=== PATIENT | female | born 1990 | race Caucasian/White ===

== ENCOUNTER 2017-09-14 05:56 | Emergency (ER) | payer BC, MEDICAID, SELFPAY ==
[2017-09-14 05:56] VITALS: BP 133/76; PULSE 130; RESP 20; TEMP 37.1; O2SAT 98; BMI 33.2
[2017-09-14] MEDS: Ondansetron 4 MG/2 ML Vial IV (06:13)
[2017-09-14] MEDS: 0.9% Normal Saline 1,000 ML 1000 ML IV ×2 (06:14→06:55)
[2017-09-14] MEDS: Loperamide 2 MG Capsule 4 MG PO (06:15)
[2017-09-14 06:19] LABS: Absolute Lymphocyte Count 0.66 X10^3/ul (0.83-4.51); Basophil# 0.01 X10^3/uL; Basophil% 0.1 % (0-1); Eosinophil# 0.03 X10^3/uL; Eosinophils% 0.2 % (0-5); Hematocrit 38.4 % (37-47); Hemoglobin 12.5 g/dl (12.0-15.0); Lymphocyte # 0.66 X10^3/ul (4.0); Mean Corp Hgb Conc 32.6 g/gl (32-36); Mean Corpuscular Hgb 30.4 pg (27.0-32.0); Mean Corpuscular Volume 93.4 fL (81-99); Mean Platelet Vol. 12.5 fl (6.2-12.0); Monocyte# 0.83 X10^3/uL; Neutrophil # 14.98 X10^3/uL (2.7-7.7); Neutrophil % 90.5 % (47-70); Platelet Count 174 K/mm3 (150-450); RBC Distribution Width CV 14.7 % (11.6-14.6); RBC Distribution Width SD 48.8 fl (35.1-43.9); Red Blood Count 4.11 M/mm3 (4.2-5.4); White Blood Count 16.5 K/mm3 (4.4-11.0)
[2017-09-14 06:31] LABS: Anion Gap 14 (5-15); BUN 18 mg/dL (7-18); BUN/Creat Ratio 27.8 RATIO (10-20); Calcium,Total 7.8 mg/dL (8.5-10.1); Chloride 108 mmol/L (98-107); Creatinine, Serum 0.65 mg/dL (0.55-1.02); EST Glomerular Filtration Rate 117 mL/min (>60); Est Glom Filt Rate - Afr Amer 142 mL/min (>60); Estimated Creatinine Clearance 154.46 ml/min; Glucose 132 mg/dL (74-106); Potassium 3.7 mmol/L (3.5-5.1); Sodium Level 140 mmol/L (136-145)
[2017-09-14 06:35] LABS: POSITIVE COUNT NO; POSITIVE DIFFERENTIAL NO; POSITIVE MORPHOLOGY NO
--- NOTE | 2017-09-14 06:53 | ED.DCSUM_ITS ---
- ER Visit Summary Date of Service: 09/14/17 Chief Complaint: [Nausea, vomiting, diarrhea] History of Present Illness: The patient is a 27 F [presents to the emergency department with symptoms that started around 2 AM. Patient states that she had 2-3 watery stools and is vomited more than 10 times. Patient states that she cannot keep anything down. Patient is and proximal Ledy 27 weeks . Patient does describe some abdominal cramping. She denies any vaginal bleeding. Patient is still feeling the baby move. Patient has not had a fever. Patient states that her son was ill about 2-3 weeks ago with upper respiratory symptoms as well as vomiting and diarrhea. Patient denies any urinary symptoms.] Physical Examination: [HEENT-PERRLA, EOMI. Cranial nerves II through XII grossly intact. TMs clear. Mucous membranes dry. No adenopathy. Cardiovascular-regular rate and tachycardic. No murmurs auscultated. Lungs-clear to auscultation, chest wall stable without crepitus or subcu emphysema Abdomen-normoactive bowel sounds, soft, nontender, no rebound or rigidity, no peritoneal signs. Patient has a gravid uterus. Extremities-intact ?4, normal range of motion, normal pulses, atraumatic] Test Results: [CBC with differential obtained showed a white blood cell count of 16.5, hemoglobin 12.5, hematocrit 38, platelets 174. Chemistry showed a sodium of 140, potassium 3.7, chloride 108, CO2 18, glucose 132, BUN 18, creatinine 0.65.] heart tones were 148 Emergency Department Course and Treatment: [Patient was given 2 L normal saline fluid boluses. He should receive Zofran 4 mg IV. Patient received Imodium. Patient was able to tolerate p.o. challenge] Treatment Plan: [Patient will be given a prescription for Zofran and advised use Imodium as needed for diarrhea] Disposition: [Discharged to home in stable condition]. Patient advised to return if persistent vomiting, diarrhea, dehydration, or condition should worsen in any way. Impression: [Viral gastroenteritis Dehydration] This note was generated with [employer] dictation software. It may contain incorrect words, spelling, and punctuation that were not noted in review of the chart prior to signing ED Disposition - Plan for ED Patient: Chief Complaint: Nausea/Vomiting/Diarrhea Referrals: Massimo Velez [Primary Care Provider] -
--- NOTE | 2017-09-14 06:53 | ED.DEP ---
ED Disposition - Plan for ED Patient: Chief Complaint: Nausea/Vomiting/Diarrhea Instructions: ED Gastroenteritis Viral Prescriptions: Ondansetron [Zofran Odt] 4 mg PO Q8H PRN PRN #10 tab PRN Reason: Nausea Referrals: Massimo Velez [Primary Care Provider] - 3-5 Days Additional Instructions: you may use Imodium for diarrhea as needed
[2017-09-14] MEDS: Ondansetron ODT 4 MG Tablet PO (07:05)
[2017-09-14 09:22] VITALS: BP 126/68; PULSE 128; RESP 17; O2SAT 100
== END 2017-09-14 09:25 | disposition home or self-care (01) ==
PROVIDERS: Emergency Provider Emergency Medicine
DX: O99.612 Diseases of the digestive system complicating pregnancy, second trimester (principal); A08.4 Viral intestinal infection, unspecified; E86.0 Dehydration; Z3A.27 27 weeks gestation of pregnancy
CPT/HCPCS: 80048; 85025; 96361; 96374; 99285; J7030; J2405

== ENCOUNTER 2017-11-27 05:25 | Inpatient (IN) | payer BC, MEDICAID, SELFPAY ==
[2017-11-26 17:11] LABS: Hematocrit 35.9 % (37-47); Hemoglobin 11.7 g/dl (12.0-15.0); Mean Corp Hgb Conc 32.6 g/gl (32-36); Mean Corpuscular Volume 92.1 fL (81-99); Mean Platelet Vol. 13.5 fl (6.2-12.0); Platelet Count 147 K/mm3 (150-450); RBC Distribution Width CV 15.5 % (11.6-14.6); RBC Distribution Width SD 50.5 fl (35.1-43.9); White Blood Count 8.9 K/mm3 (4.4-11.0)
[2017-11-26 17:22] LABS: Scan Indicated on CBC? Y/N NO
[2017-11-27] VITALS (22 sets, daily range): BP systolic 90–116; BP diastolic 49–71; PULSE 99–119; RESP 18–20; TEMP 30.5–37; O2SAT 96–100; BMI 35.9
[2017-11-27] MEDS: Lactated Ringers 1,000 ML 999 ML IV (05:50)
[2017-11-27] MEDS: 0.9% Saline Lock 10 ML Syringe IV ×2 (05:50→19:57)
[2017-11-27 06:21] LABS: Bedside Glucose 100 mg/dL (70-110)
[2017-11-27] MEDS: Lactated Ringers 1,000 ML 150 ML IV (06:40)
[2017-11-27] MEDS: Sodium Citrate/Citric Acid 30 ML UDC PO (07:18)
[2017-11-27] MEDS: Oxytocin 30 units/NS 500 ml 30 UNITS/500 ML IV.SOLN 167 UNITS IV (07:53)
[2017-11-27] MEDS: Ketorolac 30 MG/ML Syringe IV ×3 (08:20→19:56)
--- NOTE | 2017-11-27 08:35 | PCM.OB.CSR ---
Delivery Classification: Scheduled Final RICHI: 12/13/17 Gestational age: 37 Weeks and 5 Days Indications for : Repeat Elective , - - Gestational DM, not well controlled with LGA by ultrasound EFW Description of Procedure: The patient was taken to the operating room. She was prepped and draped in the dorsal supine position with a leftward tilt. A Pfannenstiel skin incision was made approximately 2 cm above the symphysis pubis and carried through to underlying layer fascia with the scalpel. Her previous scar was undermined and removed. The fascia was incised incised in the midline and extended laterally with the Gomez scissors. The fascia was dissected off the rectus muscles with blunt and sharp dissection. The rectus muscles were in the midline and the peritoneum was entered sharply. The peritoneal incision was stretched and the bladder blade was placed. The uterine incision was made in a low transverse fashion with the scalpel and extended superiorly and inferiorly with blunt dissection. [The amniotic membranes were ruptured bluntly and clear amniotic fluid returned]. The infant's head was brought to the incision in the flexed position and delivered without difficulty. A loose nuchal cord was easily reduced. The remainder of the infant was delivered with gentle traction and fundal pressure in the standard fashion. The mouth and nares were bulb suctioned. The cord was clamped and cut as the infant was stimulated. [Cord clamping was delayed]. The was handed off to the waiting nursing staff. The placenta was delivered with fundal massage and gentle traction in the standard fashion. The uterus was exteriorized and cleared of all clots and debris. [The cervix was dilated with a ring forcep]. The uterine incision was closed with #1 Vicryl in a running locked fashion. A second layer of the same suture was used in an imbricating fashion and the incision was examined for hemostasis. The uterus was placed back into the peritoneal cavity and hemostasis was assured. Surgical teams outer gloves were changed. The rectus muscles were examined and any bleeding was Bovie cauterized. The parietal peritoneum and rectus muscles were closed en bloc with a #1 Vicryl suture. The rectus fascia was examined and the bleeding was Bovie cauterized and the rectus fascia was closed with 1 PDS suture in a running standard fashion. The subcutaneous tissue was examining and any bleeding was Bovie cauterized. [The subcutaneous tissue was reapproximated with 3-0 Vicryl suture.] The skin was closed in a subcuticular fashion. I performed the entire procedure with assistance. All sponge, lap, and needle counts were correct. The patient was taken to her room for recovery in a stable condition. Amniotic Membrane Rupture Type: Artificial Amniotic Fluid Description: Clear Placenta Disposition: [facility] Specimen(s) sent to pathology: none Drain: Sun to straight drain Fluids Replaced: 800cc Cord Entanglement: Around neck x 1, loose Nuchal Cord Compression: Without compression Cord Vessel Description: 3 Vessels Esitmated Blood Loss (ml): 800 Gender: Male (1 minute): 8 (5 minute): 9 Delayed cord clamping: Yes Pre-op Antibiotic Given: Ancef 2 grams IV x1 - and zithromax Complications: None - Admit VTE Documentation VTE Present on Admission: No VTE Mechan Device Prophylaxis: SCD's VTE Pharm Prophylaxis ordered?: Yes
--- NOTE | 2017-11-27 08:39 | OP.PCM_ITS ---
Delivery Classification: Scheduled Final RICHI: 12/13/17 Gestational age: 37 Weeks and 5 Days Indications for : Repeat Elective , - - Gestational DM, not well controlled with LGA by ultrasound EFW Description of Procedure: The patient was taken to the operating room. She was prepped and draped in the dorsal supine position with a leftward tilt. A Pfannenstiel skin incision was made approximately 2 cm above the symphysis pubis and carried through to underlying layer fascia with the scalpel. Her previous scar was undermined and removed. The fascia was incised incised in the midline and extended laterally with the Gomez scissors. The fascia was dissected off the rectus muscles with blunt and sharp dissection. The rectus muscles were in the midline and the peritoneum was entered sharply. The peritoneal incision was stretched and the bladder blade was placed. The uterine incision was made in a low transverse fashion with the scalpel and extended superiorly and inferiorly with blunt dissection. [The amniotic membranes were ruptured bluntly and clear amniotic fluid returned]. The infant' s head was brought to the incision in the flexed position and delivered without difficulty. A loose nuchal cord was easily reduced. The remainder of the infant was delivered with gentle traction and fundal pressure in the standard fashion. The mouth and nares were bulb suctioned. The cord was clamped and cut as the was stimulated. [Cord clamping was delayed]. The was handed off to the waiting nursing staff. The placenta was delivered with fundal massage and gentle traction in the standard fashion. The uterus was exteriorized and cleared of all clots and debris. [The cervix was dilated with a ring forcep]. The uterine incision was closed with #1 Vicryl in a running locked fashion. A second layer of the same suture was used in an imbricating fashion and the incision was examined for hemostasis. The uterus was placed back into the peritoneal cavity and hemostasis was assured. Surgical teams outer gloves were changed. The rectus muscles were examined and any bleeding was Bovie cauterized. The parietal peritoneum and rectus muscles were closed en bloc with a #1 Vicryl suture. The rectus fascia was examined and the bleeding was Bovie cauterized and the rectus fascia was closed with 1 PDS suture in a running standard fashion. The subcutaneous tissue was examining and any bleeding was Bovie cauterized. [The subcutaneous tissue was reapproximated with 3-0 Vicryl suture.] The skin was closed in a subcuticular fashion. I performed the entire procedure with assistance. All sponge, lap, and needle counts were correct. The patient was taken to her room for recovery in a stable condition. Amniotic Membrane Rupture Type: Artificial Amniotic Fluid Description: Clear Placenta Disposition: [facility] Specimen(s) sent to pathology: none Drain: Sun to straight drain Fluids Replaced: 800cc Cord Entanglement: Around neck x 1, loose Nuchal Cord Compression: Without compression Cord Vessel Description: 3 Vessels Esitmated Blood Loss (ml): 800 Infant Gender: Male (1 minute): 8 (5 minute): 9 Delayed cord clamping: Yes Pre-op Antibiotic Given: Ancef 2 grams IV x1 - and zithromax Complications: None - Admit VTE Documentation VTE Present on Admission: No VTE Mechan Device Prophylaxis: SCD's VTE Pharm Prophylaxis ordered?: Yes
[2017-11-27 09:26] LABS: Bedside Glucose 154 mg/dL (70-110)
[2017-11-27] MEDS: Lactated Ringers 1,000 ML 100 ML IV ×2 (09:30→10:37)
[2017-11-27 11:56] LABS: Bedside Glucose 79 mg/dL (70-110)
--- NOTE | 2017-11-27 16:09 | NURSING ---
0915 - [facility] [phone] [phone] [id number]
[2017-11-27] MEDS: Senna/Docusate Sodium 1 Tablet PO (21:57)
[2017-11-28] VITALS (7 sets, daily range): BP systolic 87–110; BP diastolic 49–65; PULSE 107–122; RESP 16–20; TEMP 36–36.8; O2SAT 96–98
[2017-11-28] MEDS: 0.9% Saline Lock 10 ML Syringe IV ×3 (02:37→15:10)
[2017-11-28] MEDS: Ketorolac 30 MG/ML Syringe IV ×4 (02:37→20:56)
[2017-11-28] MEDS: Hydrocortisone 2.5% Crm 1 APPLIC TOPICAL (04:54)
[2017-11-28] MEDS: Enoxaparin 40 MG/0.4 ML Syringe SC (05:29)
[2017-11-28 05:35] LABS: Bedside Glucose 112 mg/dL (70-110)
[2017-11-28 06:16] LABS: Hematocrit 29.6 % (37-47); Hemoglobin 9.6 g/dl (12.0-15.0); Mean Corp Hgb Conc 32.4 g/gl (32-36); Mean Corpuscular Hgb 30.7 pg (27.0-32.0); Mean Corpuscular Volume 94.6 fL (81-99); Mean Platelet Vol. 12.9 fl (6.2-12.0); Platelet Count 109 K/mm3 (150-450); RBC Distribution Width CV 15.8 % (11.6-14.6); RBC Distribution Width SD 52.4 fl (35.1-43.9); Red Blood Count 3.13 M/mm3 (4.2-5.4); White Blood Count 10.7 K/mm3 (4.4-11.0)
[2017-11-28 06:56] LABS: Scan Indicated on CBC? Y/N NO
--- NOTE | 2017-11-28 08:30 | PCM.PN.OB ---
Subjective: pain well controlled, average lochia, no CP/SOB. Doesn't feel lightheaded or dizzy when up. No N/V. - Physical Exam General: Alert, Cooperative, No apparent distress Abdomen: Soft, Distended - mildly, softly, Tender - appropriately, fundus firm, below umbilicus Extremities: Edema - 1+ Skin: Incision - clean, dry and intact Vital Signs Temp Pulse Resp BP Pulse Ox 96.8 F L 115 H 20 H 92/53 L 96 11/28/17 03:30 11/28/17 05:00 11/28/17 05:00 11/28/17 05:00 11/28/17 05:00 Oxygen Delivery Method Room Air Weight: 80.6 kg Body Mass Index (BMI) 35.9 Intake and Output for Last 24 Hours 11/26/17 11/27/17 11/28/17 23:59 23:59 23:59 Intake Total 2750 / 2750 1000 / 1000 Output Total 1100 / 1100 1150 / 1150 Balance 1650 / 1650 -150 / -150 Laboratory Tests Past 24 Hrs 11/28/17 05:40 WBC 10.7 RBC 3.13 L Hgb 9.6 L Hct 29.6 L MCV 94.6 MCH 30.7 MCHC 32.4 RDW 15.8 H RDW Differential 52.4 H Plt Count 109 L MPV 12.9 H POC Glucose 11/28/17 11/27/17 11/27/17 05:32 11:40 09:20 POC Glucose 112 H 79 154 H Medical Necessity - Tobacco Use Smoking Status: Never smoker Assessment/Plan POD#1 doing well acute blood loss anemia, will recheck at noon due to persistent tachycardia and doing well
[2017-11-28] MEDS: Senna/Docusate Sodium 1 Tablet PO (08:35)
--- NOTE | 2017-11-28 12:11 | NURSING ---
green catheter discontinued
[2017-11-28] MEDS: Acetaminophen 500 MG Tablet 1000 MG PO (12:35)
[2017-11-28 12:47] LABS: Hematocrit 30.3 % (37-47); Hemoglobin 9.7 g/dl (12.0-15.0); Mean Corpuscular Hgb 29.8 pg (27.0-32.0); Mean Corpuscular Volume 93.2 fL (81-99); Mean Platelet Vol. 12.2 fl (6.2-12.0); Platelet Count 115 K/mm3 (150-450); RBC Distribution Width SD 54.7 fl (35.1-43.9); Red Blood Count 3.25 M/mm3 (4.2-5.4); White Blood Count 10.1 K/mm3 (4.4-11.0)
[2017-11-28 12:50] LABS: Scan Indicated on CBC? Y/N NO
--- NOTE | 2017-11-29 00:44 | NURSING ---
After showering pt reported that the edge of her mepilex dressing was coming off and water had gotten underneath. Upon assessment the edge of dressing was peeled away from skin so this nurse removed the entire dressing-incision was well approximated , without redness or drainage. A telfa was then placed over incision to protect from clothing friction.
[2017-11-29] MEDS: Docusate Sodium 100 MG Capsule PO ×2 (02:46→10:09)
[2017-11-29] MEDS: Ketorolac 30 MG/ML Syringe IV (02:46)
[2017-11-29] MEDS: 0.9% Saline Lock 10 ML Syringe IV (02:46)
[2017-11-29 03:00] VITALS: BP 104/66; PULSE 107; RESP 16; TEMP 36.7
[2017-11-29] MEDS: Acetaminophen 500 MG Tablet 1000 MG PO (06:06)
--- NOTE | 2017-11-29 08:22 | PCM.PN.OB ---
Subjective: pain controlled, declines narcotics. Ambulating. Average lochia. +BM - Physical Exam General: Alert, Cooperative, No apparent distress Abdomen: Soft, Non-Distended, Tender - appropriately Skin: Incision - clean, dry and intact Vital Signs Temp Pulse Resp BP Pulse Ox 98.1 F 107 H 16 104/66 98 11/29/17 03:00 11/29/17 03:00 11/29/17 03:00 11/29/17 03:00 11/28/17 20:00 Oxygen Delivery Method Room Air Weight: 80.6 kg Body Mass Index (BMI) 35.9 Intake and Output for Last 24 Hours 11/27/17 11/28/17 11/29/17 23:59 23:59 23:59 Intake Total 2750 / 2750 1000 / 1000 Output Total 1100 / 1100 1950 / 1950 Balance 1650 / 1650 -950 / -950 Laboratory Tests Past 24 Hrs 11/28/17 12:25 WBC 10.1 RBC 3.25 L Hgb 9.7 L Hct 30.3 L MCV 93.2 MCH 29.8 MCHC 32.0 RDW 16.0 H RDW Differential 54.7 H Plt Count 115 L MPV 12.2 H Medical Necessity - Tobacco Use Smoking Status: Never smoker Assessment/Plan POD#2 doing well acute blood loss anemia, appropriate for EBL w/ surger and doing well desires d/c
--- NOTE | 2017-11-29 08:26 | DCINST_ITS ---
Discharge Diet: No Restrictions Discharge Activity: Return to Normal Activity, May Not Drive - for 2 weeks, May not drive while taking narcotic pain medications., May Shower, May Take a Tub Bath - in 7 days. May resume sexual activity in: 4-6 weeks Lifting Restrictions: 20 pounds Additional Activity Instructions:: Nothing in the vagina for 4-6 weeks. You may return to work/school in 6 weeks. Call your doctor if your incision/area has: Continuous Slow Oozing, Sudden Increased Bleeding, Increased Pain/ Swelling, Increased Redness, Foul Smelling Discharge Call your doctor if you observe: Fever of 101 or Higher, Using more than one pad per hour - for 2 hours Suture Line Care: Avoid Pulling/Pushing, Avoid Pinching/Bending Cleanse incision/area with: Keep Dressing Clean & Dry Additional Instructions: If you experience any of the following, contact your healthcare provider. * Bleeding that soaks a pad every hour for 2 hours * Fever 100.4 or higher * Unrelieved incision or abdominal pain * Swelling, redness, discharge or bleeding from your incision or episiotomy site * Your incision begins to separate * Problems urinating (including inability to urinate or burning while urinating) . * Visual changes * Severe headache * Flu-like symptoms * Pain or redness in one of both of your breasts * Pain, warmth, tenderness or swelling in your legs, especially the calf area * Frequent nausea and vomiting * Symptoms of depression or anxiety If you experience any of the following, call 911 or go to the nearest Emergency Room. * Chest pain * Problems breathing * Seizure activity * Partial or complete paralysis of a body part, slurred speech, weakness or drooping of the face, or a sudden inability to walk or hold your balance Allergies/Adverse Reactions: Allergies No Known Allergies Allergy (Verified 11/26/17 16:13) Medications to take at Discharge Vits [Prenatabs FA ] 1 tablet PO DAILY 12/22/16 Naproxen [Naprosyn] 500 mg PO TID PRN #40 tab 11/29/17 The following prescriptions were given: Naproxen [Naprosyn] 500 mg PO TID PRN #40 tab PRN Reason: Pain Follow-Up: Call to make an appointment with your doctor for an incision check in 1-2 weeks. You will also need a 6 week post- follow up appointment. Please Follow Up With: Judith Gotti MD - Call to make an appointment for an incision check in 1-2 [phone] When: You will need a post check in 6 weeks. Primary Care Physician: Massimo Velez MD [Primary Care Provider] -
--- NOTE | 2017-11-29 08:26 | PCM.DC.SUM ---
Discharge Date and Diagnosis Date of Admission: 12/22/16 Date of Discharge: 11/29/17 Hospital Course and Treatment Operations: - - repeat LTCS on 11/27/17 Procedures: None Summary of Care Provided: The patient is a 27 year old female who presented at 37-5/7 weeks gestation for repeat section due to difficulty controlling her blood sugars. She had gestational diabetes and was on insulin. She had a previous section. Her section was performed on 11/27/2017 without difficulty. Postoperatively the patient did well. She had mild acute blood loss anemia appropriate for blood loss during the . By postoperative day #2 she was ambulating, urinating, and tolerating regular diet without difficulty. She was discharged home with naproxen only. She declines a prescription for narcotics. She was instructed on wound care. She is to continue her vitamins and follow-up in our office in 1-2 and 6 weeks or as needed. [] Discharge Diet: No Restrictions Discharge Activity: Return to Normal Activity, May Not Drive - for 2 weeks, May not drive while taking narcotic pain medications., May Shower, May Take a Tub Bath - in 7 days. May resume sexual activity in: 4-6 weeks Additional Activity Instructions:: Nothing in the vagina for 4-6 weeks. You may return to work/school in 6 weeks. Call your doctor if your incision/area has: Continuous Slow Oozing, Sudden Increased Bleeding, Increased Pain/ Swelling, Increased Redness, Foul Smelling Discharge Call your doctor if you observe: Fever of 101 or Higher, Using more than one pad per hour - for 2 hours Suture Line Care: Avoid Pulling/Pushing, Avoid Pinching/Bending Cleanse incision/area with: Keep Dressing Clean & Dry Home Medications: Medications to take at Discharge Vits [Prenatabs FA ] 1 tablet PO DAILY 12/22/16 Naproxen [Naprosyn] 500 mg PO TID PRN #40 tab 11/29/17 Following Prescrptions Were Given to Patient: Naproxen [Naprosyn] 500 mg PO TID PRN #40 tab PRN Reason: Pain Primary Care Physician: Massimo Velez MD [Primary Care Provider] - Please Follow Up With: Judith Gotti MD - Call to make an appointment for an incision check in 1-2 [phone] When: You will need a post check in 6 weeks. Medical Necessity - Tobacco Use Smoking Status: Never smoker Meaningful Use Info Meaningful Use Diagnoses (Choose all that apply): None applicable
[2017-11-29 09:34] VITALS: BP 113/59; RESP 20; TEMP 36.6
[2017-11-29] MEDS: Naproxen 250 MG Tablet PO (10:08)
--- NOTE | 2017-11-29 11:29 | NURSING ---
1000 While rounding, Feedings are going well! Mom discharged to home and encouraged to call if any further questions or concerns with feeding. Chas GONZALEZ
== END 2017-11-29 10:45 | disposition home or self-care (01) | DRG 765 ==
PROVIDERS: Admitting Provider Obstetrics & Gynecology; Visit Provider Obstetrics & Gynecology
PROC: 10D00Z1 Extraction of Products of Conception, Low, Open Approach (ICD-10-PCS; CPT 59514; principal; 2017-11-27 07:15)
DX: O24.424 Gestational diabetes mellitus in childbirth, insulin controlled (principal); D62 Acute posthemorrhagic anemia; O99.02 Anemia complicating childbirth; D64.9 Anemia, unspecified; O69.81X0 Labor and delivery complicated by cord around neck, without compression, not applicable or unspecified; Z3A.37 37 weeks gestation of pregnancy; Z37.0 Single live birth; O90.81 Anemia of the puerperium
CPT/HCPCS: 82962; 85027; 86850; 86900; 99218; J7120; A4216; G0378; J2405

== ENCOUNTER 2021-04-08 17:45 | Outpatient (CLI) | payer BC, SELFPAY ==
[2021-04-08 18:00] VITALS: BMI 35.2
--- NOTE | 2021-04-08 18:39 | OB.TRI.NOTE ---
HPI - General HPI Narrative ELIUD TRUONG, is a 30 F at 33.5 weeks gestation who presents for scheduled NST. GDM A2 and receives biweekly NST's in office but due to work schedule, needed to come to unit today. PFSH PFSH Home Medications vit,[id number] [Prenatabs FA] 1 tab PO DAILY 12/22/16 [History Last Taken 11/25/17] Allergy/AdvReac Type Severity Reaction Status Date / Time No Known Allergies Allergy Verified 11/26/17 16:13 Social History Smoking Status: Never smoker History Elective abortions Hx Para 1 Spontaneous abortions Hx # Term Pregnancies Ectopic pregnancies Hx # Pregnancies Multiple births # of living children ROS Eyes Eyes: Denies blurry vision Cardiovascular Cardiovascular: Reports none; Denies chest pain at rest, chest pain with activity or dizziness Respiratory/Chest Respiratory/Chest: Denies cough or dyspnea Gastrointestinal Gastrointestinal: Reports none and other; Denies diarrhea or vomiting Genitourinary Genitourinary: Denies dysuria Musculoskeletal Musculoskeletal: Reports none Integumentary Integumentary: Reports none; Denies rash Neurologic Neurologic: Denies dizziness, headache(s) or other visual disturbances Psychiatric Psychiatric: Reports none Physical Exam Const alert and no apparent distress General Appearance: cooperative Orientation / Consciousness: awake Exam Limitations: no limitations HEENT normocephalic Eyes General Eye: normal appearance of both eyes Neck full ROM Chest inspection of chest normal Resp normal respiratory effort and normal air movement Effort and Inspection: symmetric chest movement Auscultation: clear to auscultation bilaterally Cardio regular rate GI soft to palpation, non-tender and non-distended Inspection: and other Back/Spine normal ROM Extremity full ROM, normal capillary refill and no calf tenderness Skin no rashes or lesions noted Neuro oriented x3 and CN's II-XII intact bilaterally Psych mental status grossly normal NST FHR Rate Baby A Baseline: 130 Variability:: Moderate Accelerations:: 15 x 15 Decelerations:: None NST Reactive:: Yes Uterine Activity:: occasional- patient denies feeling Assessment & Plan (1) 33 weeks gestation of : (2) GDM, class A2: (3) NST (non-stress test) reactive on surveillance: PLAN: NST reactive Follow up in office on Saturday PTL precautions and kick counts reviewed
== END 2021-04-08 18:30 | disposition home or self-care (01) ==
LOC: WPOUT 17:51 → WP 17:51
PROVIDERS: Visit Provider Advanced Practice Midwife
DX: O24.415 Gestational diabetes mellitus in pregnancy, controlled by oral hypoglycemic drugs (principal); Z3A.33 33 weeks gestation of pregnancy
CPT/HCPCS: 59025; 59050; 99218; G0378

== ENCOUNTER 2021-04-28 13:00 | Outpatient (CLI) | payer BC, SELFPAY ==
[2021-04-28 13:02] VITALS: PULSE 112; O2SAT 99
[2021-04-28 13:04] VITALS: BP 108/63; PULSE 115; TEMP 36.5; O2SAT 99; BMI 35.9
--- NOTE | 2021-04-30 14:18 | OB.TRI.NOTE ---
HPI - General HPI Narrative ELIUD TRUONG, is a 31 F who presents for a scheduled NST. No complaints and doing well. PFSH PFSH Home Medications Prenatabs FA 1 tab PO DAILY 12/22/16 [History Last Taken 04/27/21 10:00] insulin NPH isoph U-100 human [Humulin N NPH U-100 Insulin] 20 unit SUBCUT BREAKFAST 04/28/21 [History Last Taken 04/28/21 10:00] insulin NPH isoph U-100 human [Humulin N NPH U-100 Insulin] 44 unit SUBCUT QHS 04/28/21 [History Last Taken 04/27/21 22:00] insulin regular human [Humulin R Regular U-100 Insuln] See Rx Instructions .ROUTE .COMPLEX 04/28/21 [History Last Taken 04/28/21 10:00] Allergy/AdvReac Type Severity Reaction Status Date / Time No Known Allergies Allergy Verified 11/26/17 16:13 Social History Smoking Status: Never smoker History Elective abortions Hx Para 1 Spontaneous abortions Hx # Term Pregnancies Ectopic pregnancies Hx # Pregnancies Multiple births # of living children NST FHR Rate Baby A Baseline: 145 Variability:: Moderate Accelerations:: 15 x 15 Decelerations:: None NST Reactive:: Yes Uterine Activity:: Irregular ctx's Assessment & Plan (1) 36 weeks gestation of : PLAN: Presents for scheduled NST for GDM. NST is reactive. Patient discharged home with f/u in office. (2) Gestational diabetes: (3) Multiparous:
== END 2021-04-28 14:00 | disposition home or self-care (01) ==
LOC: WPOUT 13:01 → WP 13:02
PROVIDERS: Visit Provider Obstetrics & Gynecology
DX: O24.419 Gestational diabetes mellitus in pregnancy, unspecified control (principal); Z3A.36 36 weeks gestation of pregnancy
CPT/HCPCS: 59025; 99218; G0378

== ENCOUNTER 2021-05-04 04:50 | Inpatient (IN) | payer BC, SELFPAY ==
--- NOTE | 2021-04-25 15:31 | HP.PCM_ITS ---
History and Physical HPI: The patient is a 31 year old female presenting for pre-operative visit. She is scheduled for and and bilateral salpingectomy, for previous c,s GDMA2, steriliztion request on 05/02/21. Procedure discussed along with risks, benefits and complications. Other alternatives discussed for management. Consent form signed? Yes. ? ? PAST MEDICAL HISTORY PAST MEDICAL HISTORY Diagnosis Date ? Anemia in 10/02/2016 ? Borderline diabetes mellitus 08/01/2019 ? Gestational diabetes mellitus, class A1 10/04/2016 ? History of blood transfusion ? ? ? hemorrhage ? ? ? PAST SURGICAL HISTORY PAST SURGICAL HISTORY Procedure Laterality Date ? APPENDECTOMY HX ? ? ? age 15 ? DELIVERY ONLY ? 12/23/2016 ? DELIVERY ONLY ? 11/27/2017 ? EXTRACTION, ERUPTED TOOTH OR EXPOSED ROOT (ELEVATION AND/OR FORCEPS REMOVAL) ? ? ? age 20 ? ? ? CURRENT MEDICATIONS Current Outpatient Medications Medication Sig Dispense Refill ? insulin NPH injection (HumuLIN N,NovoLIN N) Inject 60 Units subcutaneously as directed. 44 units qhs and 20 units before breakfast 3 mL 1 ? insulin lispro (HUMALOG KWIKPEN INSULIN) 100 unit/mL Inject 6 Units subcutaneously three times daily before meals. 3 mL 2 ? Insulin Premier, Disposable, (BD ULTRA-FINE SUZIE PEN NEEDLE) 32 gauge x 5/32 60 Each twice daily. 60 Each 2 ? BD INSULIN SYRINGE UF 0.5 mL 30 gauge x 1/2 2 insulin needles for pens needed for daily injection use 60 Each 2 ? blood sugar diagnostic test strip 1 Strip four times daily. Use as instructed 120 Strip 9 ? Lancets lancets 1 Each four times daily. Use as instructed 120 Each 9 ? vit [id number] 27 mg iron- 1 mg-150 mg cmpk Take 1 tablet by mouth once daily. 30 Each 11 ? No current facility-administered medications for this visit. ? ? ALLERGIES: Patient has no known allergies. ? PERSONAL HISTORY: SOCIAL HISTORY Social History ? Tobacco Use ? Smoking status: Never Smoker ? Smokeless tobacco: Never Used Vaping Use ? Vaping Use: current everyday user Substance Use Topics ? Alcohol use: Not Currently ? ? Comment: not while ? Drug use: No ? FAMILY HISTORY: FAMILY HISTORY FAMILY HISTORY Problem Relation Age of Onset ? Hyperlipidemia Mother ? ? Hypertension Father ? ? No Known Problems Sister ? ? No Known Problems Brother ? ? Diabetes Maternal Grandmother ? ? Cataract Maternal Grandmother ? ? Heart Paternal Grandmother ? ? Kidney Disease Paternal Grandmother ? ? No Known Problems Son ? ? ? REVIEW OF SYMPTOMS: GENERAL: denies fevers or chills ENDOCRINOLOGY: has not been on steroids Cardiology : denies palpitations or chest pain Respiratory: denies SOB or cough Hematology: denies history of prolonged bleeding or easy bruising or VTE Allergy: Denies history of personal or family history of allergy to anesthesia ? PHYSICAL EXAMINATION: ? VITALS: Last menstrual period 08/15/2020. ? GENERAL: The patient is well nourished, well hydrated in no acute distress. , The patient is oriented to time, place, and person. NECK: Supple. No lynphadenopathy, normal thyroid, no thyromegaly. LUNGS: Clear to auscultation bilaterally. no wheezes, rhonchi or rales HEART: Regular rate and rhythm, Normal heart sounds and No murmurs or gallops ? IMPRESSION: previous c/s, GDM A2, sterilization request Estimated Date of Delivery: 05/22/21 ? ? PLAN: The risks/benefits/alternatives and personal involved for the planned repeat c/s and bilateral salpingectomy were reviewed with the patient. Her questions were answered to her satisfaction and she desires to proceed. Consent was signed. I reviewed with her postop instructions and expectations. ? ? I have reviewed and updated past medical and surgical history, medications and allergies This H&P was complete in my office on 2020 Assessment & Plan Assessment/Plan (1) 37 weeks gestation of : (2) Previous delivery affecting : (3) GDM, class A2: (4) Request for sterilization: (5) BMI 36.0-36.9,adult: (6) Maternal obesity syndrome in third trimester:
[2021-05-04] VITALS (17 sets, daily range): BP systolic 89–121; BP diastolic 47–77; PULSE 79–115; RESP 16–96; TEMP 36.1–36.8; O2SAT 90–99; BMI 35.3
[2021-05-04] MEDS: Lactated Ringers 1,000 ML 999 ML IV (05:05)
[2021-05-04 05:20] LABS: Absolute Lymphocyte Count 1.52 X10^3/uL (0.83-4.51); Absolute Neutrophil Count 7.1 X10^3/uL (2.0-7.7); Basophil# 0.01 X10^3/uL; Basophil% 0.1 % (0-1); Eosinophil# 0.02 X10^3/uL; Eosinophils% 0.2 % (0-5); Hematocrit 34.4 % (37-47); Hemoglobin 11.1 g/dL (12.0-15.0); Lymphocyte # 1.52 X10^3/ul (0.83-4.51); Lymphocyte % 16.3 % (19-41); Mean Corp Hgb Conc 32.3 g/dL (32-36); Mean Corpuscular Volume 89.8 fL (81-99); Mean Platelet Vol. 11.9 fl (6.2-12.0); Monocyte% 6.4 % (0-10); NRBC Flagged by Analyzer 0 % (0-5); Neutrophil # 7.06 X10^3/uL (2.7-7.7); Neutrophil % 75.9 % (47-70); Platelet Count 160 K/mm3 (150-450); RBC Distribution Width CV 14.6 % (11.6-14.6); RBC Distribution Width SD 47.6 fl (35.1-43.9); Red Blood Count 3.83 M/mm3 (4.2-5.4); White Blood Count 9.3 K/mm3 (4.4-11.0)
[2021-05-04 05:36] LABS: Bedside Glucose 96 mg/dL (70-110)
[2021-05-04] MEDS: Acetaminophen 500 MG Tablet 1000 MG PO ×3 (05:49→19:47)
[2021-05-04] MEDS: Lactated Ringers 1,000 ML 150 ML IV (06:09)
[2021-05-04] MEDS: Sodium Citrate/Citric Acid 30 ML UDC PO (07:18)
[2021-05-04] MEDS: Cefazolin 2 GM in 0.9% Normal Saline 100 ML IV (07:20)
--- NOTE | 2021-05-04 07:53 | FALS_PTH ---
PATIENT: ELIUD TRUONG LOC: [facility] U#:[id number] AGE/SX: 31/F ROOM: WP010 RE05/04/[address]: Dr. Judith Gotti MD : 1990 BED: 1 DIS: 05/05/2021 SPEC #: [id number] RECD: 05/04/21 08:56 STATUS: ROSANNA PATEL #: [id number] STEVENSON: 05/04/21 07:[address]: Judith Gotti DEPT: SURGICAL PATHOLOGY RECD BY: Joan Castro ENTERED: 05/04/21 10:04 SP TYPE: FALL TUBES OTHR DR: Dr. Massimo Velez MD Tissues: Fallopian tube Procedures: Surgery Specimen Level II HEADER OPERATION: Tubal ligation PRE-OP DIAGNOSIS: Sterilization TISSUE SUBMITTED: Fallopian tubes, suture in right tube MICROSCOPIC DIAGNOSIS Right fallopian tube, salpingectomy: Complete segment of fallopian tube with no pathologic change. Left fallopian tube, salpingectomy: Complete segment of fallopian tube with no pathologic change. AM:yimi 05/05/2021 MICROSCOPIC DESCRIPTION Slides are reviewed. GROSS DESCRIPTION Received in fixative is one container labeled with the patient's name and designated bilateral fallopian tubes, right tube stitch. The specimen consists of bilateral fallopian tubes including fimbrial ends. The right tube is identified by a suture. The right fallopian tube measures 8 cm in length and 1 cm in diameter and the left fallopian tube measures 7.5 cm in length and 0.7 cm in diameter. Sections reveal unremarkable cut surfaces. Braided Rug Maker sections are submitted in two cassettes as follows: 1 ? right fallopian tube, 2 ? left fallopian tube. / SLIME:yimi 05/04/21 TC:4 CPT: 89569 x2
--- NOTE | 2021-05-04 08:24 | EX.PCM.OBRPT ---
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 She was prepped and draped in the dorsal supine position with a leftward tilt. A Pfannenstiel skin incision was made approximately 2 cm above the symphysis pubis and carried through to underlying layer fascia with the scalpel. The fascia was incised incised in the midline and extended laterally with the Gomez scissors. The fascia was dissected off the rectus muscles with blunt and sharp dissection. The rectus muscles were in the midline and the peritoneum was entered bluntly. The peritoneal incision was stretched and the bladder blade was placed. The uterine incision was made in a low transverse fashion with the scalpel and extended superiorly and inferiorly with blunt dissection. The amniotic membranes were ruptured bluntly and clear amniotic fluid returned. The 's head was brought to the incision in the flexed position and delivered without difficulty. The remainder of the infant was delivered with gentle traction and fundal pressure in the standard fashion. The mouth and nares were bulb suctioned. The cord was clamped and cut as the infant was stimulated. Cord clamping was delayed. The infant was handed off to the waiting nursing staff. The placenta was delivered with fundal massage and gentle traction in the standard fashion. The uterus was exteriorized and cleared of all clots and debris. The cervix was dilated with a ring forcep. The uterine incision was closed with #1 Vicryl in a running locked fashion. A second layer of the same suture was used in an imbricating fashion. The incision was examined and was found to be hemostatic. Some Phuong was placed over this layer. The uterus was placed back into the peritoneal cavity and hemostasis was again confirmed. The left tube was identified and followed out to the fimbriated end. The LigaSure device was used to clamp, seal and transect the tube in its entirety. Hemostasis was noted. The same procedure was performed on the contralateral side and again hemostasis was noted. The rectus muscles were examined and any bleeding was Bovie cauterized. The parietal peritoneum and rectus muscles were closed en bloc with an 0 Vicryl running suture. The surgical teams outer gloves were then changed. The rectus fascia was examined and any bleeding was Bovie cauterized and the rectus fascia was closed with 0 PDS suture in a running standard fashion. The subcutaneous tissue was examining and any bleeding was Bovie cauterized. The subcutaneous tissue was reapproximated with 3-0 Vicryl suture. The skin was closed in a subcuticular fashion by the CUT OUT OPERATOR with me present in the labor and delivery suite. I performed the remainder of the procedure with assistance. All sponge, lap, and needle counts were correct. The patient was taken to her room for recovery in a stable condition. Presentation: Positive for Vertex Amniotic Membrane Rupture Type: Spontaneous Amniotic Fluid Description: Clear Placental Delivery Description: Expressed Placenta Disposition: [facility] Specimen(s) Sent to Pathology: bilateral fallopian tubes Cord Vessel Description: 3 Vessels Cord Entanglement: None A Gender: Female (Marija) (1 minute): 8 (5 minute): 9 Delayed Cord Clamping: Yes Complications Complications: none Admit VTE Documentation VTE Present on Admission: No VTE Mechan Device Prophylaxis: [facility] [place] [place] Prophylaxis Ordered: Yes
[2021-05-04] MEDS: Oxytocin 30 units/NS 500 ml 30 UNITS/500 ML IV.SOLN 167 UNITS IV (08:45)
[2021-05-04 08:54] LABS: Pathology Specimen OB SEE PATHOLOGY REPORT
[2021-05-04] MEDS: Ketorolac 30 MG/ML Syringe IV ×3 (09:31→21:34)
--- NOTE | 2021-05-04 09:58 | NURSING ---
Addendum entered by Carlee Antonio RN 05/04/21 10:02: Dr. Gotti also aware that patient denies shortness of breath. Original Note: Dr. Gotti notified of patient's pulse ox levels and blood sugar of 132 in recovery. Monitor O2 saturation. Titrate oxygen as needed to maintain pulse ox between 92 and 94. Patient still has productive cough. Obtain fasting blood sugar in AM.
[2021-05-04 10:30] LABS: Bedside Glucose 132 mg/dL (70-110)
--- NOTE | 2021-05-04 10:56 | NURSING ---
Bedside report given to Roya Pollack RN, who will now assume care of patient.
[2021-05-04] MEDS: Lactated Ringers 500 ML 999 ML IV (13:05)
--- NOTE | 2021-05-04 13:11 | RAD_ITS ---
STUDY: X-RAY CHEST REASON FOR EXAM: Female, 31 years old. Moist lung sounds TECHNIQUE: Single AP portable view of the chest. COMPARISON: None. FINDINGS: Patchy focal bilateral pulmonary infiltrates worse in the right hemithorax. There is no demonstrated pleural abnormality. Normal size heart. Normal mediastinum and maude. Normal visualized pulmonary arteries. Normal visualized aortic arch and descending thoracic aorta. Normal visualized thoracic spine. Normal visualized ribs, clavicles, and shoulders. There is no demonstrated abnormality of the visualized soft tissue structures of the upper abdomen. RAD/Chest 1 View IMPRESSION: Patchy bilateral pulmonary infiltrates worse in the right hemithorax. Pneumonitis secondary to Covid should be ruled out. Electronically Signed: Carlos Buckley MD at 13:26 EST , Service support ,
[2021-05-04] MEDS: Lactated Ringers 1,000 ML 100 ML IV (13:41)
--- NOTE | 2021-05-04 16:37 | PN.HOSP_ITS ---
Documented by User: Olivia Pena, RESOURCE TECHNICIAN-C 05/04/21 16:49 Subjective Subjective Patient seen and examined. Patient sitting in bed no distress noted. Patient states that she just got done feeding. Patient underwent a earlier today. Per time with RN Dr. Gotti was concerned that patient's need for oxygen following due to concurrent COVID-19 diagnosis. Patient became symptomatic on 04/23/2021 and tested positive for Covid on 04/25/2021. Patient is not currently on oxygen. Objective Data Objective Data Vital Signs: Vital Signs Temp Pulse Resp BP Pulse Ox 97.3 F L 86 24 H 91/61 99 05/04/21 13:00 05/04/21 13:00 05/04/21 13:00 05/04/21 13:00 05/04/21 13:00 Oxygen Delivery Method Room Air Weight: 175 lb Body Mass Index (BMI) 35.3 Intake & Output: Intake and Output for Last 24 Hours 05/02/21 05/03/21 05/04/21 23:59 23:59 23:59 Intake Total 3966.67 / 3966.67 Output Total 150 / 150 Balance 3816.67 / 3816.67 Lab / Micro Data Result Diagrams: 05/04/21 05:05 Labs: Laboratory Results - last 24 hr 05/04/21 05:05: WBC 9.3, RBC 3.83 L, Hgb 11.1 L, Hct 34.4 L, MCV 89.8, MCH 29.0, MCHC 32.3, RDW Std Deviation 47.6 H, RDW Coeff of Aide 14.6, Plt Count 160, MPV 11.9, Immature Gran % (Auto) 1.100 H, Neut % (Auto) 75.9 H, Lymph % (Auto) 16.3 L, [place] % (Auto) 6.4, Eos % (Auto) 0.2, Baso % (Auto) 0.1, Absolute Neuts (auto) 7.1, Absolute Lymphs (auto) 1.52, Nucleated RBC % 0 05/04/21 05:05: Blood Type O POSITIVE, Antibody Screen NEGATIVE 05/04/21 05:17: POC Glucose 96 05/04/21 09:38: POC Glucose 132 H Radiography Diagnostic Testing: Radiology Impression Chest X-Ray 11/18/21 13:11 IMPRESSION: Patchy bilateral pulmonary infiltrates worse in the right hemithorax. Pneumonitis secondary to Covid should be ruled out. Electronically Signed: Carlos Buckley MD at 13:26 EST , Service support , Physical Exam Const alert, oriented x3 and no apparent distress HEENT head/scalp atraumatic Head and Scalp: normocephalic Eyes conjunctivae normal and no scleral icterus Neck full ROM and supple Resp normal respiratory effort and normal air movement Effort and Inspection: able to speak in complete sentences and symmetric chest movement Auscultation: wheezes expiratory wheezes, right lower and right upper Cardio regular rate, regular rhythm, S1 normal heart sound and S2 normal heart sound GI normal to inspection, nondistended, normoactive bowel sounds, soft to palpation and non-tender Extremity normal to inspection, full ROM and no clubbing, cyanosis or edema Peripheral Pulses: Yes pulses 2+ throughout Skin no rashes or lesions noted Skin Narrative: Patient has surgical incision from . Dressing dry and intact Neuro oriented x3, moves all extremities, no focal motor deficits and no sensory deficits noted Sensorium / Orientation: awake and alert Psych affect normal Assessment & Plan Assessment/Plan (1) COVID: PLAN: 1. Covid 19 -Patient became symptomatic 04/23/2021 was tested positive on 04/25/2021. -Following earlier this morning patient was noted to be slightly hypoxic in the low 90s and for a short time required 2 L nasal cannula oxygen. Patient not currently on oxygen, pulse ox 95 to 98% on room air -Patient has been provided incentive spirometer and has been using that every hour. We will add Pep therapy as well as Mucinex twice daily -As needed albuterol treatments ordered -Discussed with patient signs and symptoms of worsening Covid instructed that if patient develops fevers, shortness of breath, chest pain once discharged that patient should return to the ER. From a medical standpoint patient is stable at this time and is okay to be di scharged when determined ready by HEDIS REGISTERED NURSE RN. This patient was seen by RUBI Portillo under the supervision of Dr. Borja. Documented by User: Dr. Costa Borja MD 05/04/21 18:34 Subjective Subjective Hospitalist was consulted for positive COVID-19 infection. Patient has mild symptoms of nasal congestion, URI, nausea on 04/23 and tested positive on 04/25. Patient has mild dry cough but not shortness of breath. Mando parkinson is not hypoxic. It shows mild bilateral infiltrates, more on the right hemithorax. Patient had a in the morning today 05/04/2021. Objective Data Lab / Micro Data Result Diagrams: 05/04/21 05:05 Physical Exam Narrative General: Alert, Oriented x3, Cooperative HEENT: Atraumatic, PERRLA, EOMI, Normocephalic Oral: No Gingival or Mucosal Lesions/ Ulcerations Neck: Supple, No JVD, Negative Carotid Bruits Lungs: Air entry equal in both lungs. No crepitation/rhonchi. No crepitation/rhonchi Cardiovascular: Regular rate, Regular Rhythm, Normal S1, Normal S2, No murmurs Abdomen: Bowel Sounds Present, Soft, Non Tender, Non-Distended : No renal angle tenderness. No suprapubic tenderness. Extremities: No edema, Capillary Refill Less than 3 Seconds Skin: No rashes, No breakdown Musculoskeletal: No Tenderness to Palpation of Joints or Extremities Neurological: Cranial nerves II-XII grossly intact, DTR 2+/4 and Symmetrical, Neuro grossly intact Psych/Mental Status: Normal Affect, Appropriate. Assessment & Plan Assessment/Plan (1) COVID: PLAN: This patient was seen in conjunction with URSZULA Baker. I have independently interviewed and examined the patient and reviewed pertinent history, examination findings, laboratory and plan of management. I have reviewed the note and agree with the documented findings with the few additional points. In brief, patient was seen as a hospitalist consult from OB attending for COVID- 19. Patient is mild bilateral COVID-19 pneumonia but she is not hypoxic . [place] gs are clear. Currently pulse ox 96% on room air. Discussed with nursing staff. Currently conservative management, Mucinex, incentive spirometry and chest physiotherapy. If pulse ox drops less than 92%, consider dexamethasone 6 mg oral daily for 10 days with the caveat that it might delay or impair surgical wound healing of section. I discussed with the patient myself. Albuterol as needed for shortness of breath and wheezing. Patient will need 21 days of Covid isolation/quarantine from the day of his start of symptoms, 04/23/2021. Patient also encouraged to get vaccinated about after 1 month of start of Covid symptoms. Rest as mentioned above. I have discussed my assessment with URSZULA Baker and orders have been reviewed. Charges/Coding Visit Charges Inpatient E&M: 28025 Init Hosp L2
[2021-05-04] MEDS: 0.9% Saline Lock 10 ML Syringe IV ×2 (18:31→21:35)
[2021-05-04] MEDS: guaiFENesin 1,200 MG Tablet 1200 MG PO (18:32)
[2021-05-04] MEDS: Albuterol 2.5 MG/3 ML VIAL.NEB. INHALATION (19:34)
[2021-05-04] MEDS: Enoxaparin 40 MG/0.4 ML Syringe SC (19:48)
--- NOTE | 2021-05-04 19:59 | NURSING ---
174-green removed emptied for 350cc enc measuriing void x2. pt was up ambulating well in room
[2021-05-05 00:08] VITALS: BP 92/60; PULSE 81; RESP 18; TEMP 36.5; O2SAT 97
[2021-05-05] MEDS: Acetaminophen 500 MG Tablet 1000 MG PO ×2 (01:51→08:39)
[2021-05-05] MEDS: 0.9% Saline Lock 10 ML Syringe IV (03:54)
[2021-05-05] MEDS: Ketorolac 30 MG/ML Syringe IV (03:54)
[2021-05-05 03:59] VITALS: BP 105/62; PULSE 89; RESP 16; TEMP 36.5; O2SAT 98
[2021-05-05 05:58] LABS: Hematocrit 27.5 % (37-47); Hemoglobin 8.9 g/dL (12.0-15.0); Mean Corp Hgb Conc 32.4 g/dL (32-36); Mean Corpuscular Hgb 29.1 pg (27.0-32.0); Mean Corpuscular Volume 89.9 fL (81-99); Mean Platelet Vol. 11.8 fl (6.2-12.0); Platelet Count 144 K/mm3 (150-450); RBC Distribution Width CV 14.7 % (11.6-14.6); RBC Distribution Width SD 48.5 fl (35.1-43.9); Red Blood Count 3.06 M/mm3 (4.2-5.4); White Blood Count 9.8 K/mm3 (4.4-11.0)
[2021-05-05 06:05] LABS: Bedside Glucose 84 mg/dL (70-110)
--- NOTE | 2021-05-05 08:19 | PCM.PN.OB ---
Subjective Subjective Patient seen at bedside. Feeling good. Ambulating and voiding without difficulty. Denies any SOB, CP or dizziness. Breast feeding with minimal support. Desires discharge home later today. Objective Data Objective Data Vital Signs: Vital Signs Temp Pulse Resp BP Pulse Ox 97.7 F L 89 16 105/62 98 05/05/21 03:59 05/05/21 03:59 05/05/21 03:59 05/05/21 03:59 05/05/21 03:59 Oxygen Delivery Method Room Air Weight: 175 lb Body Mass Index (BMI) 35.3 Intake & Output: Intake and Output for Last 24 Hours 05/03/21 05/04/21 05/05/21 23:59 23:59 23:59 Intake Total 5553.34 / 5553.34 Output Total 600 / 700 800 / 800 Balance 4953.34 / 4853.34 -800 / -800 Lab / Micro Data Result Diagrams: 05/05/21 05:50 Labs: Laboratory Results - last 24 hr 05/04/21 09:38: POC Glucose 132 H 05/05/21 05:46: POC Glucose 84 05/05/21 05:50: WBC 9.8, RBC 3.06 L, Hgb 8.9 L, Hct 27.5 L, MCV 89.9, MCH 29.1, MCHC 32.4, RDW Std Deviation 48.5 H, RDW Coeff of Aide 14.7 H, Plt Count 144 L, MPV 11.8 Radiography Diagnostic Testing: Radiology Impression Chest X-Ray 05/04/21 13:11 IMPRESSION: Patchy bilateral pulmonary infiltrates worse in the right hemithorax. Pneumonitis secondary to Covid should be ruled out. Electronically Signed: Carlos Buckley MD at 13:26 EST , Service support , ROS Eyes Eyes: Denies blurry vision, change in vision or spots in vision ENT HEENT: Denies dizziness or headache(s) Cardiovascular Cardiovascular: Denies abdominal pain, chest pain or dyspnea Respiratory/Chest Respiratory/Chest: Denies cough, dyspnea, shortness of breath at rest or shortness of breath with exertion Gastrointestinal Gastrointestinal: Denies abdominal pain, diarrhea or vomiting Genitourinary Genitourinary: Denies change in urinary stream, difficulty urinating or dysuria Musculoskeletal Musculoskeletal: Reports none Integumentary Integumentary: Denies rash Neurologic Neurologic: Denies dizziness, headache(s), memory loss or weakness Physical Exam Narrative Dressing is dry and intact Const alert and no apparent distress General Appearance: cooperative and comfortable Exam Limitations: no limitations HEENT normocephalic Eyes General Eye: normal appearance of both eyes Neck full ROM General: normal visual inspection Chest Chest: symmetrical chest wall rise Resp normal respiratory effort and normal air movement Effort and Inspection: symmetric chest movement Auscultation: clear to auscultation bilaterally Cardio regular rate and regular rhythm GI normal to inspection, nondistended, normoactive bowel sounds Back/Spine normal ROM Extremity full ROM and no calf tenderness General Extremity: normal exam except as noted Skin no rashes or lesions noted Neuro CN's II-XII intact bilaterally Psych mental status grossly normal Assessment & Plan (1) COVID-19 affecting in third trimester: (2) S/P repeat low transverse : (3) Status post bilateral salpingectomy: PLAN: POD 1 Repeat C/S with bilateral tubal ligation Pain control Increase ambulation support Requesting discharge home later today
--- NOTE | 2021-05-05 08:25 | PCM.DC.SUM ---
Providers Date of Admission: 05/04/21 Primary Care Physician: Dr. Massimo Velez MD Reason For Visit: REPEAT C SECTION Diagnosis Discharge Diagnosis (1) COVID-19 affecting in third trimester: Status: Acute Code(s): O98.513 - Other viral diseases complicating , third trimester; U07.1 - COVID-19 Plan: Patient evaluated by hospitalist and cleared for discharge O2 Sat. 99% Room air No SOB, CP or dizziness (2) S/P repeat low transverse : Status: Acute Code(s): Z98.891 - History of uterine scar from previous surgery (3) Status post bilateral salpingectomy: Status: Acute Code(s): Z90.79 - Acquired absence of other genital organ(s) Medications at Discharge Home Medications Prenatabs FA 1 tab PO DAILY 12/22/16 Hospital Course Operations section Summary of Care Provided Hospital Course: Patient admitted for repeat section with bilateral salpingectomy. Hospital course was uneventful. Physical Exam Narrative S/P COIVD + on 04/25/21. Seen and evaluated by hospitalist yesterday. Const alert and no apparent distress General Appearance: cooperative and comfortable Exam Limitations: no limitations HEENT normocephalic Eyes General Eye: normal appearance of both eyes Neck full ROM General: normal visual inspection Chest Chest: symmetrical chest wall rise Resp normal respiratory effort and normal air movement Effort and Inspection: symmetric chest movement Auscultation: clear to auscultation bilaterally Cardio regular rate and regular rhythm GI normal to inspection, nondistended, normoactive bowel sounds Back/Spine normal ROM Extremity full ROM and no calf tenderness General Extremity: normal exam except as noted Skin no rashes or lesions noted Neuro CN's II-XII intact bilaterally Psych mental status grossly normal Weight / BMI Weight Weight: 175 lb Body Mass Index (BMI) 35.3 ABG / Lab / Microbiology Data Result Diagrams: 05/05/21 05:50 Laboratory: Laboratory Results - last 24 hr 05/04/21 09:38: POC Glucose 132 H 05/05/21 05:46: POC Glucose 84 05/05/21 05:50: WBC 9.8, RBC 3.06 L, Hgb 8.9 L, Hct 27.5 L, MCV 89.9, MCH 29.1, MCHC 32.4, RDW Std Deviation 48.5 H, RDW Coeff of Aide 14.7 H, Plt Count 144 L, MPV 11.8 Radiography Diagnostic Testing: Radiology Impression Chest X-Ray 05/04/21 13:11 IMPRESSION: Patchy bilateral pulmonary infiltrates worse in the right hemithorax. Pneumonitis secondary to Covid should be ruled out. Electronically Signed: Carlos Buckley MD at 13:26 EST , Service support , D/C Instructions Discharge Diet: No restrictions May resume sexual activity in: 6-8 weeks Weight Bearing Status: Weight bearing as tolerated Lifting Restrictions: 20 lbs Call your doctor if your incision/area has: Continuous Slow Oozing, Increased Pain/ Swelling, Increased Redness, Foul Smelling Discharge and Swelling at the incision site Call your doctor if you observe: Fever of 101 or Higher, Inability to urinate, Using more than 1 pad per hour, Shortness of breath, Chest pain, Calf discomfort and Uncontrolled pain Remove Dressing in: 5 days Cleanse incision/area with: Soap & Water and Keep Dressing Clean & Dry When: 1 week in office for incision check or sooner if needed 6 weeks Meaningful Use Info Meaningful Use Diagnoses (Choose all that apply): None applicable Discharge Plan Admission Admit Date/Time: 05/04/21 04:50 Primary Reason for Your Visit: Repeat C/S Attending Provider: Judith Gotti Primary Care Provider: Massimo Velez Discharge Orders/Prescriptions Prescriptions: No Action Prenatabs FA 1 TABLET tablet 1 tab PO DAILY RF: 0 Referrals / Follow Up: Massimo Velez MD [Primary Care Provider] - Disposition Disposition (needs filled in before D/C Order can be placed): Home, Self Care
[2021-05-05 08:41] VITALS: BP 102/64; PULSE 91; RESP 16; TEMP 36.3; O2SAT 97
[2021-05-05] MEDS: guaiFENesin 1,200 MG Tablet 1200 MG PO (10:17)
[2021-05-05] MEDS: Senna/Docusate Sodium 1 Tablet PO (10:17)
[2021-05-05] MEDS: Ibuprofen 600 MG Tablet PO (11:53)
[2021-05-05 11:55] VITALS: BP 103/62; PULSE 96; RESP 16; TEMP 36.4; O2SAT 97
== END 2021-05-05 13:05 | disposition home or self-care (01) | DRG 783 ==
PROVIDERS: Admitting Provider Obstetrics & Gynecology; Visit Provider Obstetrics & Gynecology
PROC: 10D00Z1 Extraction of Products of Conception, Low, Open Approach (ICD-10-PCS; CPT 59514; principal; 2021-05-04 07:15)
DX: O98.52 Other viral diseases complicating childbirth (principal); U07.1 COVID-19; J12.82 Pneumonia due to coronavirus disease 2019; O99.52 Diseases of the respiratory system complicating childbirth; O99.214 Obesity complicating childbirth; E66.9 Obesity, unspecified; O24.424 Gestational diabetes mellitus in childbirth, insulin controlled; Z3A.37 37 weeks gestation of pregnancy; Z37.0 Single live birth
CPT/HCPCS: 71045; 82962; 85025; 85027; 86850; 86900; 86901; 88302; 94640; 94667; 99218; J7120; A4216; G0378; J2405